=== PATIENT | male | born 1975 | race Caucasian/White ===

== ENCOUNTER 2018-01-08 17:00 | Emergency (ER) | payer OTHER ==
[2018-01-08] MEDS ORDERED: DIAZEPAM 5 MG TAB PO ONE (17:29)
[2018-01-08] MEDS ORDERED: APAP/OXYCODONE 325/5 TAB PO ONE (17:29)
[2018-01-08] MEDS ORDERED: KETOROLAC TROMETHAMINE 30 MG/ML SOL IM ONE (17:29)
[2018-01-08 17:30] VITALS: RESP 20; TEMP 98
[2018-01-08] MEDS ORDERED: PREDNISONE 20 MG TAB PO ONE (17:30)
[2018-01-08] MEDS ORDERED: APAP/OXYCODONE 325/5 TAB ONE (17:37)
[2018-01-08] MEDS ORDERED: KETOROLAC TROMETHAMINE 30 MG/ML SOL ONE (17:37)
[2018-01-08] MEDS ORDERED: DIAZEPAM 5 MG TAB ONE (17:37)
[2018-01-08] MEDS ORDERED: PREDNISONE 20 MG TAB ONE (17:38)
[2018-01-08 19:41] VITALS: BP 124/70; PULSE 77; O2SAT 96
== END 2018-01-08 18:23 | disposition home or self-care (01) | DRG 552 ==
LOC: ED 17:00
DX: M54.6 Pain in thoracic spine (principal); M54.5 Low back pain; X50.0XXA Overexertion from strenuous movement or load, initial encounter
CPT/HCPCS: 99283; J1885; A9270-GY